=== PATIENT | male | born 1970 | race African-American/Black ===

== ENCOUNTER → 2021-02-17 | Outpatient (CLI) | payer SELFPAY ==
[2021-02-17 10:02] LABS: BASO % 1 % (0-3); EOS # 0.2 x10^3/uL (0.0-0.7); EOS % 3 % (0-3); HEMATOCRIT 53.2 % (39.0-53.0); HEMOGLOBIN 17.4 g/dL (13.0-17.5); LYMPH # 3.2 x10^3/uL (1.0-4.8); LYMPH % 57 % (24-48); MEAN CORPUSCULAR HEMOGLOBIN 28 pg (25-35); MEAN CORPUSCULAR HGB CONC 33 g/dL (31-37); MEAN CORPUSCULAR VOLUME 85 fL (79-100); MONO # 0.3 x10^3/uL (0.0-1.1); MONO % 5 % (0-9); NEUT % 35 % (31-73); PLATELET COUNT 223 x10^3/uL (140-400); RED BLOOD COUNT 6.27 x10^6/uL (4.30-5.70); RED CELL DISTRIBUTION WIDTH 15.1 % (11.5-14.5); WHITE BLOOD COUNT 5.7 x10^3/uL (4.0-11.0)
[2021-02-17 10:29] LABS: ALBUMIN/GLOBULIN RATIO 1.3 (1.0-1.7); CALCIUM 9.3 mg/dL (8.5-10.1); CREATININE 1.3 mg/dL (0.7-1.3); GFR 71.3; POTASSIUM 4.5 mmol/L (3.5-5.1); TOTAL BILIRUBIN 0.7 mg/dL (0.2-1.0); TOTAL PROTEIN 7.1 g/dL (6.4-8.2)
== END ==
LOC: ONCLAB 09:12
PROVIDERS: ATTEND Internal Medicine Hematology & Oncology
DX: Z85.038 Personal history of other malignant neoplasm of large intestine (principal)
CPT/HCPCS: 36415; 80053; 82378; 85025

== ENCOUNTER → 2021-02-24 | Outpatient (CLI) | payer OTHER ==
[~2021-02-24] MED LIST: IOHEXOL 240 MG/ML 50ML VIAL. PO ONE
--- NOTE | 2021-02-24 12:55 | RAD ---
EXAM: Chest, abdomen and pelvis CT without intravenous contrast. HISTORY: Colon cancer. TECHNIQUE: Computed tomographic images of the chest, abdomen and pelvis were obtained without contras t. Multiplanar reformatting was performed. *One or more of the following individualized dose reduction techniques were utilized for this examina tion: 1. Automated exposure control. 2. Adjustment of the mA and/or kV according to patient size. 3. Use of iterative reconstruction technique. COMPARISON: None. FINDINGS: Chest: The heart is normal in size. The aorta is normal in caliber. There are calcified med iastinal and right hilar granulomas. No pathologically enlarged lymph node is seen. There is no pneum othorax or pleural effusion. There are few small calcified granulomas within the right upper lobe. No suspicious noncalcified pulmonary nodule is seen. There is no suspicious osseous lesion. There is de generative change involving the lower cervical spine. There are few thoracic endplate Schmorl's nodes . Abdomen and pelvis: No hepatic lesion is seen on this noncontrast exam. There is a contracted gallbla dder containing multiple stones. The pancreas, spleen, adrenal glands and kidneys are unremarkable. T here is a surgical anastomosis within the left midabdomen due to prior colonic resection. There is no bowel obstruction. The bladder is nearly empty. The aorta is normal in caliber. No pathologically enlarged lymph node or soft tissue implant is seen. There is a small fat-containing supraumbilical hernia to the right of midline. There is a ventral ab dominal wall scar due to prior laparotomy surgery. There are degenerative changes involving the spine . There is no acute or suspicious osseous lesion. IMPRESSION: 1. Limited evaluation for malignancy given the absence of intravenous contrast. There is no convincin g evidence of primary malignancy or metastatic disease. 2. Findings consistent with partial colonic resection. 3. Cholelithiasis. 4. Small fat-containing right superior ventral abdominal wall hernia Electronically signed by: Ginette Saldivar MD (02/24/2021 12:53 PM) [id number]
== END ==
LOC: CT 10:06
PROVIDERS: ATTEND Internal Medicine Hematology & Oncology
DX: K43.9 Ventral hernia without obstruction or gangrene (principal); K80.20 Calculus of gallbladder without cholecystitis without obstruction; Z85.038 Personal history of other malignant neoplasm of large intestine
CPT/HCPCS: 71250; 74176; Q9966